=== PATIENT | male | born 1990 | race African-American/Black ===

== ENCOUNTER 2020-04-06 14:29 | Inpatient (IN) | payer OTHER, SELFPAY ==
[2020-04-06 15:15] LABS: #Basophils 0.1 thou/uL (0.0-0.2); #Eosinphils 0.1 thou/uL (0.0-0.7); #Lymphocytes 4.1 thou/uL (1.20-3.40); #Monocytes 0.7 thou/uL (0.11-0.59); #Neutrophils 6.8 thou/uL (1.40-6.50); %Basophils 0.5 % (0.0-1.0); %Eosinophils 0.4 % (0.0-10.0); %Lymphocytes 34.9 % (21.0-51.0); %Monocytes 5.8 % (0.0-10.0); %Neutrophils 58.3 % (42.0-75.0); Hemoglobin 18.3 g/dL (14.0-18.0); Mean Corpuscular HGB CONC 34.8 g/dL (32.0-36.0); Mean Corpuscular Volume 89.3 fL (78.0-98.0); Mean Platelet Volume 10.2 fL (7.4-10.4); Platelet Count 185 thou/uL (130-400); RBC Distribution Width 11.6 % (11.5-14.5); Red Blood Cell (RBC) Count 5.88 mill/uL (4.70-6.10); White Blood Cell (WBC) Count 11.7 thou/uL (4.8-10.8)
[2020-04-06 15:37] LABS: ALT (SGPT) 29 U/L (8-55); AST (SGOT) 16 U/L (5-34); Albumin 4.7 g/dL (3.5-5.0); Alkaline Phosphatase 106 U/L (40-110); Anion Gap 23 mmol/L (10-20); BUN (Urea Nitrogen) 16 mg/dL (8.9-20.6); Bilirubin, Total 0.5 mg/dL (0.2-1.2); Calc. Creatinine Clearance 0 mL/min (70-130); Calcium 9.5 mg/dL (7.8-10.44); Carbon Dioxide 19 mmol/L (22-29); Chloride 94 mmol/L (98-107); Estimated GFR-MDRD 53; Globulin 3.2 g/dL (2.4-3.5); Glucose 292 mg/dL (70-105); Lipase 8 U/L (8-78); Potassium 4.2 mmol/L (3.5-5.1); Protein, Total 7.9 g/dL (6.0-8.3); Sodium 132 mmol/L (136-145)
[2020-04-06 16:11] LABS: Bilirubin Negative (Negative); Blood, Urine Negative (Negative); Clarity Clear (Clear); Glucose, Urine (Dipstick) Greater than 1000 mg/dL (Negative); Ketone, Urine 80 mg/dL (Negative); Leukocyte Negative Leu/uL (Negative); Nitrite Negative (Negative); Protein, Urine (Dipstick) Negative (Neg-Trace); Urobilinogen Normal mg/dL (Less than 2)
[2020-04-06] MEDS ORDERED: INSULIN REGULAR IN 0.9 % NACL 100 UNIT/100 ML BAG ONE (17:07)
--- NOTE | 2020-04-06 17:57 | PDOC.HHP ---
Hospitalist Results - Labs Result Diagrams: 04/06/20 15:06 04/06/20 15:06 Lab results: WBC 11.7 thou/uL (4.8-10.8) H 04/06/20 15:06 Hgb 18.3 g/dL (14.0-18.0) H 04/06/20 15:06 Hct 52.5 % (42.0-52.0) H 04/06/20 15:06 MCV 89.3 fL (78.0-98.0) 04/06/20 15:06 Plt Count 185 thou/uL (130-400) 04/06/20 15:06 Neutrophils % 58.3 % (42.0-75.0) 04/06/20 15:06 Sodium 132 mmol/L (136-145) L 04/06/20 15:06 Potassium 4.2 mmol/L (3.5-5.1) 04/06/20 15:06 Chloride 94 mmol/L (98-107) L 04/06/20 15:06 Carbon Dioxide 19 mmol/L (22-29) L 04/06/20 15:06 BUN 16 mg/dL (8.9-20.6) 04/06/20 15:06 Creatinine 1.54 mg/dL (0.7-1.3) H 04/06/20 15:06 Glucose 292 mg/dL (70-105) H 04/06/20 15:06 Calcium 9.5 mg/dL (7.8-10.44) 04/06/20 15:06 Total Bilirubin 0.5 mg/dL (0.2-1.2) 04/06/20 15:06 AST 16 U/L (5-34) 04/06/20 15:06 ALT 29 U/L (8-55) 04/06/20 15:06 Alkaline Phosphatase 106 U/L (40-110) 04/06/20 15:06 Troponin I Less than 0.010 ng/mL (< 0.028) 04/06/20 15:06 Serum Total Protein 7.9 g/dL (6.0-8.3) 04/06/20 15:06 Albumin 4.7 g/dL (3.5-5.0) 04/06/20 15:06 Lipase 8 U/L (8-78) 04/06/20 15:06 Urine Ketones 80 mg/dL (Negative) A 04/06/20 15:55 Urine Blood Negative (Negative) 04/06/20 15:55 Urine Nitrite Negative (Negative) 04/06/20 15:55 Ur Leukocyte Esterase Negative Karthik/uL (Negative) 04/06/20 15:55
[2020-04-06 18:45] LABS: Hemoglobin A1c 12.4 % (4.0-6.0)
[2020-04-06] MEDS ORDERED: NS 0.9% w/ 20 MEQ KCL 1,000 ML/1,000 ML BAG IV SCH (18:45)
[2020-04-06 18:47] LABS: Phosphorus 4.7 mg/dL (2.3-4.7)
[2020-04-06] MEDS ORDERED: NS 0.9% w/ 20 MEQ KCL 1,000 ML IV SCH (19:00)
[2020-04-06] MEDS ORDERED: Insulin Regular 300 UNITS/3 ML VIAL SC PRN (19:06)
[2020-04-06] MEDS ORDERED: Dextrose 5% in Water 1,000 ML IV PRN (19:06)
[2020-04-06] MEDS ORDERED: Dextrose 50% Abboject 50 ML SYRINGE SLOW IVP PRN (19:06)
[2020-04-06] MEDS ORDERED: Senokot S 8.6-50 MG TAB PO PRN (19:07)
[2020-04-06] MEDS ORDERED: Acetaminophen 325 MG TAB PO PRN (19:07)
[2020-04-06] MEDS ORDERED: Calcium Carbonate 500 MG ChewTAB PO PRN (19:07)
[2020-04-06] MEDS ORDERED: Ondansetron ODT 4 MG TAB PO PRN (19:07)
[2020-04-06] MEDS ORDERED: Ondansetron PF 4 MG/2 ML Vial IVP PRN (19:07)
[2020-04-06] MEDS ORDERED: Electrolyte Replacement Protocol IVPB PRN (19:08)
[2020-04-06] MEDS ORDERED: Acetaminophen/Codeine 30-300mg Tablet PO PRN (19:09)
[2020-04-06] MEDS ORDERED: cloNIDine 0.1 MG TAB PO PRN (19:09)
[2020-04-06] MEDS ORDERED: Mag-Al 1200 mg/1200 mg/30 ML UDCUP PO PRN (19:14)
[2020-04-06] MEDS ORDERED: Sodium Chloride 0.9% 1,000 ML IV SCH (20:00)
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
[2020-04-06 20:34] VITALS: BMI 22.7
[2020-04-06] MEDS: NS 0.9% w/ 20 MEQ KCL 1,000 ML/1,000 ML BAG IV SCH (20:55)
[2020-04-06] MEDS ORDERED: NPH, Human Insulin Isophane 300 UNIT/3 ML VIAL SC SCH (21:00)
[2020-04-06] MEDS: Famotidine 20 MG TAB PO SCH (21:19)
[2020-04-07] MEDS: Insulin Regular 300 UNITS/3 ML VIAL SC PRN ×2 (00:18→03:31)
[2020-04-07] MEDS: NS 0.9% w/ 20 MEQ KCL 1,000 ML/1,000 ML BAG IV SCH ×2 (03:58→09:32)
[2020-04-07 05:00] LABS: Anion Gap 15 mmol/L (10-20); BUN (Urea Nitrogen) 17 mg/dL (8.9-20.6); Calc. Creatinine Clearance 126 mL/min (70-130); Calcium 8.3 mg/dL (7.8-10.44); Carbon Dioxide 18 mmol/L (22-29); Chloride 105 mmol/L (98-107); Estimated GFR-MDRD Greater than 90; Glucose 238 mg/dL (70-105); Phosphorus 2.6 mg/dL (2.3-4.7); Sodium 134 mmol/L (136-145)
[2020-04-07] MEDS ORDERED: Magnesium 2 GM/50 ML 2 GM in Premix Bag 1 BAG IVPB SCH (06:30)
[2020-04-07] MEDS ORDERED: FLU VACC QS2020-21(6MOS UP)/PF 60 MCG/0.5 ML SYRINGE IM ONE (09:00)
[2020-04-07] MEDS ORDERED: NPH, Human Insulin Isophane 300 UNIT/3 ML VIAL SC SCH (09:00)
[2020-04-07] MEDS: Famotidine 20 MG TAB PO SCH (09:25)
[2020-04-07 11:09] LABS: SARS-CoV-2 MS2 Positive; SARS-CoV-2 N Gene Negative; SARS-CoV-2 S Gene Negative; SARS-CoV-2 by NAA Not Detected (NotDetected); SARS-CoV-2 orf1ab Negative
[2020-04-07 12:57] VITALS: BP 136/74; TEMP 98.2
--- NOTE | 2020-04-07 18:16 | PDOC.DS.DS ---
Provider - Provider Date of Admission: 04/06/20 18:29 Date of Discharge: 04/07/20 Admitting Provider: Austyn Shaikh MD Consultations:: None Primary Care Physician: [facility] Clinic Course - Hospital Course Hospital Course: Patient is a 29-year-old male with diabetes mellitus type 2 currently not taking any medications presented to the emergency room with generalized weakness with elevated blood sugars. His work-up was consistent with diabetic ketoacidosis with blood sugar in 400 with elevated ketones of 5.54. He was initially started on insulin drip along with IV fluids per DKA protocol. However patient wanted to eat while in the emergency room. He also threatened to sign AGAINST MEDICAL ADVICE. For this reason insulin drip was transitioned to subcu insulin. IV fluids were continued. This morning his gap has closed. He is tolerating regular diabetic diet. He was counseled on diabetes mellitus type 2 and importance of taking medications. He has been started on 70/30 insulin. He understands the risk associated with insulin not limited to life-threatening hypoglycemia. He was counseled on hypoglycemic symptoms as well. He appears stable for discharge. Final diagnosis: Anion gap metabolic acidosis due to diabetic ketoacidosis Generalized weakness due to above Acute kidney injury due to dehydration Uncontrolled diabetes mellitus type 2 with A1c of 12.4 Medication noncompliance Hypertension Resuscitation Status: 04/06/20 19:07 Resuscitation Status Routine Resuscitation Status: FULL: Full Resuscitation - Labs Lab Results: 04/06/20 15:06 04/07/20 03:27 Abnormal Lab Results - Last 48 hrs 04/06/20 15:06: Sodium 132 L, Chloride 94 L, Carbon Dioxide 19 L, Anion Gap 23 H, Creatinine 1.54 H 04/06/20 15:06: WBC 11.7 H, Hgb 18.3 H, Hct 52.5 H, Neutrophils # 6.8 H, Lymphocytes # 4.1 H, Monocytes # 0.7 H 04/06/20 15:06: B-Hydroxybutyrate 5.54 H 04/06/20 15:06: Hemoglobin A1c 12.4 H 04/06/20 15:55: Urine Glucose (UA) Greater than 1000 A, Urine Ketones 80 A 04/07/20 03:27: Sodium 134 L, Carbon Dioxide 18 L 04/07/20 03:27: B-Hydroxybutyrate 1.40 H - Physical Exam Vitals: Vital Signs (12 hours) Temp Pulse Resp BP Pulse Ox 04/07/20 12:57 98.2 F 94 18 136/74 100 04/07/20 08:28 97.9 F 92 18 140/89 100 Weight Weight 192 lb Physical Exam: The patient was seen and examined on the day of discharge. Plan - Discharge Medications Prescriptions: Insulin NPH Hum/Reg Insulin HM [Novolin 70/30] 10 unit SC ASDIR #2 vial Home Medications: Medication Instructions Recorded Confirmed Type Insulin NPH Hum/Reg Insulin HM 10 unit SC ASDIR #2 vial 04/07/20 Rx [Novolin 70/30] Allergies: No Known Drug Allergies Allergy (Verified 04/06/20 20:45) - Discharge Instructions Discharge Instructions:: Monitor sugars on daily basis and maintain a log Notify MD or return to the ER for any of the following symptoms: chest pain, shortness of breath, unrelieved pain, increase in urinary frequency, increase in thirst, or increase in hunger. - Follow up Plan Referrals: Jessica Peter [facility]CHRON[facility]ER [[facility]] - 04/08/20 2:15 pm (The clinic will call you for this appointment. ) Disposition: HOME
[2020-04-08 08:43] LABS: Base Excess-Venous -5.6 mmol/L (-2.0 to 3.0); Bicarbonate (HCO3v) 20.8 mmol/L (22.0-28.0); CO2 Tension (PvCO2) 42.8 mmHg (40.0-50.0); Calcium, Ionized 1.01 mmol/L (1.15-1.33); Chloride 101 mmol/L (98-107); Hemoglobin - Calc 17.8 g/dL (14.0-18.0); Potassium 3.9 mmol/L (3.5-5.1); Sodium 132 mmol/L (138-145); T. Carbon Dioxide 22.1 mmol/L (22.0-28.0)
== END 2020-04-07 13:57 | disposition home or self-care (01) | DRG 638 ==
LOC: ERS 14:29 → ONC 18:29
PROVIDERS: ADMIT Student in an Organized Health Care Education/Training Program; ATTEND Student in an Organized Health Care Education/Training Program
DX: E11.10 Type 2 diabetes mellitus with ketoacidosis without coma (principal); N17.9 Acute kidney failure, unspecified; E87.1 Hypo-osmolality and hyponatremia; I10 Essential (primary) hypertension; F32.9 Major depressive disorder, single episode, unspecified; F41.9 Anxiety disorder, unspecified; E86.0 Dehydration; R53.1 Weakness; Z20.828 Contact with and (suspected) exposure to other viral communicable diseases; Z91.14 Patient's other noncompliance with medication regimen
CPT/HCPCS: 36415; 36416; 80048; 80053; 81003; 82010; 82330; 82435; 82803; 83036; 83690; 83735; 84100; 84132; 84295; 84484; 85014; 85025; 87635; 93005; J1815; J3475; J3480; U0003

== ENCOUNTER 2020-08-18 18:09 | Emergency (ER) | payer SELFPAY ==
[2020-08-18 19:12] LABS: #Basophils 0.1 thou/uL (0.0-0.2); #Eosinphils 0.1 thou/uL (0.0-0.7); #Lymphocytes 2.9 thou/uL (1.20-3.40); #Monocytes 0.5 thou/uL (0.11-0.59); #Neutrophils 5.8 thou/uL (1.40-6.50); %Basophils 0.5 % (0.0-1.0); %Eosinophils 1.5 % (0.0-10.0); %Lymphocytes 30.5 % (21.0-51.0); %Monocytes 5.7 % (0.0-10.0); %Neutrophils 61.7 % (42.0-75.0); Hemoglobin 14.7 g/dL (14.0-18.0); Mean Corpuscular HGB CONC 33.6 g/dL (32.0-36.0); Mean Corpuscular Hemoglobin 30.5 pg (27.0-31.0); Mean Corpuscular Volume 90.9 fL (78.0-98.0); Mean Platelet Volume 9.6 fL (7.4-10.4); Platelet Count 196 thou/uL (130-400); RBC Distribution Width 11.5 % (11.5-14.5); Red Blood Cell (RBC) Count 4.81 mill/uL (4.70-6.10); White Blood Cell (WBC) Count 9.4 thou/uL (4.8-10.8)
[2020-08-18 19:30] LABS: Actual Bicarbonate (HCO3v) 23 mEq/L (22-28); Analyzer IN Cardio ER; Base Excess -3.1 mEq/L (-2.0 to +3.0); Calcium, Ionized (venous) 1.15 mmol/L (1.16-1.32); Chloride (VBG) 96 mmol/L (98-106); Hemoglobin (Hb) 15.7 g/dL (13.2-17.3); Potassium (VBG) 4.26 mmol/L (3.70-5.30); Sodium 130.6 mmol/L (133-146); pH (venous) 7.33 (7.32-7.43)
[2020-08-18 19:31] LABS: Bilirubin Negative (Negative); Blood, Urine Negative (Negative); Clarity Clear (Clear); Glucose, Urine (Dipstick) Greater than 1000 mg/dL (Negative); Ketone, Urine Negative (Negative); Leukocyte Negative Leu/uL (Negative); Nitrite Negative (Negative); Protein, Urine (Dipstick) Negative (Neg-Trace); Specific Gravity, Urine 1.027 (1.002-1.036); Urobilinogen Normal mg/dL (Less than 2); pH, Urine 6.5 (5.0-9.0)
[2020-08-18 19:35] LABS: ALT (SGPT) 34 U/L (8-55); AST (SGOT) 28 U/L (5-34); Albumin 4.1 g/dL (3.5-5.0); Alkaline Phosphatase 111 U/L (40-110); Anion Gap 17 mmol/L (10-20); BUN (Urea Nitrogen) 12 mg/dL (8.9-20.6); Bilirubin, Total 0.2 mg/dL (0.2-1.2); Calc. Creatinine Clearance 0 mL/min (70-130); Calcium 8.9 mg/dL (7.8-10.44); Carbon Dioxide 22 mmol/L (22-29); Chloride 96 mmol/L (98-107); Globulin 3.2 g/dL (2.4-3.5); Potassium 4.5 mmol/L (3.5-5.1); Protein, Total 7.3 g/dL (6.0-8.3); Sodium 130 mmol/L (136-145)
[2020-08-18 19:47] LABS: Glucose 684 mg/dL (70-105)
[2020-08-18] MEDS ORDERED: Insulin Regular 300 UNITS/3 ML VIAL ONE (20:32)
== END 2020-08-18 21:34 | disposition home or self-care (01) ==
LOC: ERS 18:09
DX: E11.65 Type 2 diabetes mellitus with hyperglycemia (principal); R81 Glycosuria; I10 Essential (primary) hypertension
CPT/HCPCS: 36415; 36416; 80053; 81003; 82010; 82805; 84484; 85025; 93005; J1815

== ENCOUNTER 2020-10-09 22:03 | Emergency (ER) | payer SELFPAY ==
[2020-10-09] MEDS ORDERED: Metoclopramide 10 MG/10 ML UDCUP ONE (23:04)
[2020-10-09] MEDS ORDERED: Ketorolac Tromethamine 30 MG/ML VIAL ONE (23:04)
[2020-10-09] MEDS ORDERED: Metoclopramide HCl 10 MG/2 ML VIAL ONE (23:04)
[2020-10-09] MEDS ORDERED: diphenhydrAMINE 50 MG/ML VIAL ONE (23:04)
[2020-10-09 23:11] LABS: #Basophils 0.1 thou/uL (0.0-0.2); #Eosinphils 0.1 thou/uL (0.0-0.7); #Lymphocytes 2.9 thou/uL (1.20-3.40); #Monocytes 0.5 thou/uL (0.11-0.59); #Neutrophils 3.8 thou/uL (1.40-6.50); %Basophils 0.8 % (0.0-1.0); %Eosinophils 1.9 % (0.0-10.0); %Lymphocytes 39.1 % (21.0-51.0); %Monocytes 6.8 % (0.0-10.0); %Neutrophils 51.4 % (42.0-75.0); Hemoglobin 14.7 g/dL (14.0-18.0); Mean Corpuscular Volume 90.8 fL (78.0-98.0); Mean Platelet Volume 10.8 fL (7.4-10.4); Platelet Count 155 thou/uL (130-400); RBC Distribution Width 12.1 % (11.5-14.5); Red Blood Cell (RBC) Count 4.89 mill/uL (4.70-6.10); White Blood Cell (WBC) Count 7.3 thou/uL (4.8-10.8)
[2020-10-09 23:31] LABS: Bilirubin Negative (Negative); Blood, Urine Negative (Negative); Clarity Clear (Clear); Glucose, Urine (Dipstick) Greater than 1000 mg/dL (Negative); Ketone, Urine Negative (Negative); Leukocyte Negative Leu/uL (Negative); Nitrite Negative (Negative); Protein, Urine (Dipstick) Negative (Neg-Trace); Specific Gravity, Urine 1.031 (1.002-1.036); Urobilinogen Normal mg/dL (Less than 2)
[2020-10-09 23:51] LABS: ALT (SGPT) 13 U/L (8-55); AST (SGOT) 23 U/L (5-34); Alkaline Phosphatase 117 U/L (40-110); Anion Gap 15 mmol/L (10-20); BUN (Urea Nitrogen) 5 mg/dL (8.9-20.6); Bilirubin, Total 0.3 mg/dL (0.2-1.2); Calc. Creatinine Clearance 0 mL/min (70-130); Calcium 9.1 mg/dL (7.8-10.44); Carbon Dioxide 23 mmol/L (22-29); Chloride 101 mmol/L (98-107); Globulin 3.7 g/dL (2.4-3.5); Glucose 444 mg/dL (70-105); Lipase 15 U/L (8-78); Protein, Total 7.7 g/dL (6.0-8.3); Sodium 134 mmol/L (136-145)
[2020-10-10 16:49] LABS: SARS-CoV-2 PCR by NAA Not Detected (NotDetected)
== END 2020-10-10 00:51 | disposition home or self-care (01) ==
LOC: ERS 22:03
DX: R51.9 Headache, unspecified (principal); Z20.822 Contact with and (suspected) exposure to COVID-19; E11.9 Type 2 diabetes mellitus without complications; I10 Essential (primary) hypertension; F17.210 Nicotine dependence, cigarettes, uncomplicated
CPT/HCPCS: 70450; 71045; 80053; 81003; 83690; 85025; 87635; 93005; 96374; 96375; J1200; J1885; J2765; U0003; U0005

== ENCOUNTER 2020-10-16 08:42 | Emergency (ER) | payer SELFPAY ==
[2020-10-16 13:15] LABS: #Basophils 0.1 thou/uL (0.0-0.2); #Eosinphils 0.2 thou/uL (0.0-0.7); #Lymphocytes 2.6 thou/uL (1.20-3.40); #Monocytes 0.7 thou/uL (0.11-0.59); #Neutrophils 5.9 thou/uL (1.40-6.50); %Basophils 0.6 % (0.0-1.0); %Eosinophils 1.6 % (0.0-10.0); %Monocytes 7.4 % (0.0-10.0); %Neutrophils 62.4 % (42.0-75.0); Hemoglobin 16.6 g/dL (14.0-18.0); Mean Corpuscular HGB CONC 31.6 g/dL (32.0-36.0); Mean Corpuscular Hemoglobin 28.5 pg (27.0-31.0); Mean Corpuscular Volume 90.2 fL (78.0-98.0); Mean Platelet Volume 9.8 fL (7.4-10.4); Platelet Count 171 thou/uL (130-400); White Blood Cell (WBC) Count 9.4 thou/uL (4.8-10.8)
[2020-10-16] MEDS ORDERED: Dexamethasone 10 MG/ML VIAL ONE (13:20)
[2020-10-16 13:38] LABS: ALT (SGPT) 14 U/L (8-55); AST (SGOT) 12 U/L (5-34); Albumin 4.8 g/dL (3.5-5.0); Alkaline Phosphatase 138 U/L (40-110); Anion Gap 13 mmol/L (10-20); BUN (Urea Nitrogen) 13 mg/dL (8.9-20.6); Bilirubin, Total 0.7 mg/dL (0.2-1.2); Calc. Creatinine Clearance 0 mL/min (70-130); Calcium 10.4 mg/dL (7.8-10.44); Carbon Dioxide 27 mmol/L (22-29); Chloride 93 mmol/L (98-107); Globulin 3.7 g/dL (2.4-3.5); Glucose 417 mg/dL (70-105); Lipase 11 U/L (8-78); Potassium 4.4 mmol/L (3.5-5.1); Protein, Total 8.5 g/dL (6.0-8.3); Sodium 129 mmol/L (136-145)
[2020-10-16] MEDS ORDERED: Insulin Regular 300 UNITS/3 ML VIAL ONE (14:27)
== END 2020-10-16 15:19 | disposition home or self-care (01) ==
LOC: ERS 08:42
DX: J02.9 Acute pharyngitis, unspecified (principal); R07.9 Chest pain, unspecified; E11.9 Type 2 diabetes mellitus without complications; I10 Essential (primary) hypertension; F17.210 Nicotine dependence, cigarettes, uncomplicated
CPT/HCPCS: 36415; 36416; 71045; 80053; 83690; 84484; 85025; 87081; 87430; 93005; J1100; J1815